=== PATIENT | male | born 1995 | race Caucasian/White ===

== ENCOUNTER → 2021-04-06 | Outpatient (REF) | payer BC ==
[2021-04-06 09:53] LABS: SEMEN APPEARANCE OPAQUE (OPAQUE); SEMEN VISCOSITY LIQUID (LIQUID); SEMEN VOLUME 4.6 ml (2.0-5.0)
[2021-04-06 09:55] LABS: WBC CONCENTRATION >1 M/ml (<=1 M/ml)
== END ==
LOC: M LAB REF 08:47
PROVIDERS: ATTEND Obstetrics & Gynecology Obstetrics
DX: Z30.8 Encounter for other contraceptive management (principal)